=== PATIENT | male | born 1970 ===

== ENCOUNTER 2016-10-08 17:47 | Emergency (ER) | payer MEDICARE, MEDICAID ==
[2016-10-08 18:48] VITALS: BP 100/65
--- NOTE | 2016-10-08 19:08 | UC ---
Back Pain HPI - HPI Summary HPI Summary: 46 yo male with right mid back pain x 1 1 /2 weeks no injury hurts to twist and change positions no f/c no bowel or bladder dysfunction no UTI symptoms - History of Current Complaint Chief Complaint: UCBackPain Stated Complaint: MIDDLE BACK PAIN Time Seen by Provider: 10/08/16 18:49 Hx Obtained From: Patient Onset/Duration: Gradual Onset, Lasting Weeks Timing: Intermittent, Lasting Minutes Severity Initially: Moderate Severity Currently: Mild Pain Intensity: 3 Pain Scale Used: 0-10 Numeric Back Pain: Is Discrete @ - see image Character: Aching, Throbbing, Spasmodic Aggravating: Movement Alleviating: Rest, OTC Meds Associated Signs And Symptoms: Positive: Negative - Allergies/Home Medications Allergies/Adverse Reactions: Allergies Allergy/AdvReac Type Severity Reaction Status Date / Time No Known Allergies Allergy Verified 10/08/16 18:37 PMH/Surg Hx/FS Hx/Imm Hx Endocrine History: Diabetes GI/ History: Gastroesophageal Reflux Psychological History: Anxiety - Surgical History Surgical History: Yes Surgery Procedure, Year, and Place: RIGHT arm surgery as child - Family History Known Family History: Positive: Hypertension - Social History Alcohol Use: None Substance Use Type: None Smoking Status (MU): Former Smoker When Did the Patient Quit Smoking/Using Tobacco: 2008 - Immunization History Most Recent Influenza Vaccination: MAR 2016 Most Recent Tetanus Shot: UNK Most Recent Pneumonia Vaccination: N/A Review of Systems Constitutional: Negative Skin: Negative Eyes: Negative ENT: Negative Respiratory: Negative Cardiovascular: Negative Gastrointestinal: Negative Genitourinary: Negative Motor: Negative Neurovascular: Negative Musculoskeletal: Myalgia Neurological: Negative Psychological: Negative All Other Systems Reviewed And Are Negative: Yes Physical Exam Triage Information Reviewed: Yes Appearance: Well-Appearing, No Pain Distress, Well-Nourished Vital Signs: Initial Vital Signs Temp 98.3 F 10/08/16 18:40 Pulse 75 10/08/16 18:40 Resp 18 10/08/16 18:40 BP 100/65 10/08/16 18:40 Pulse Ox 98 10/08/16 18:40 Vital Signs Reviewed: Yes Eyes: Positive: Conjunctiva Clear ENT: Positive: Hearing grossly normal. Negative: Tonsillar swelling, Tonsillar exudate, Trismus, Muffled/hoarse voice Neck: Positive: Supple, Nontender Respiratory: Positive: Lungs clear, Normal breath sounds, No respiratory distress, No accessory muscle use Cardiovascular: Positive: RRR, No Murmur Bowel Sounds: Positive: Present Musculoskeletal: Positive: ROM Intact, No Edema Neurological: Positive: Alert Psychological Exam: Normal Skin Exam: Normal Back Pain Course/Dx - Differential Dx/Diagnosis Provider Diagnoses: right rhomboid myofascial strain spasm Discharge - Discharge Plan Condition: Stable Disposition: HOME Prescriptions: Cyclobenzaprine TAB* [Flexeril TAB*] 5 mg PO TID PRN #21 tab PRN Reason: Spasms Ibuprofen TAB* [Motrin TAB*] 600 mg PO Q6H PRN #40 tab PRN Reason: Pain Patient Education Materials: Thoracic Back Strain (ED) Referrals: [facility] [Primary Care Provider] - 5 Days Images Front/Back of Body, Lg ([place]): 1 - tender
== END 2016-10-08 19:12 | disposition home or self-care (01) ==
LOC: UCCORT 17:47
DX: S29.012A Strain of muscle and tendon of back wall of thorax, initial encounter (principal); X58.XXXA Exposure to other specified factors, initial encounter; Y93.9 Activity, unspecified; Y92.9 Unspecified place or not applicable; E11.9 Type 2 diabetes mellitus without complications; K21.9 Gastro-esophageal reflux disease without esophagitis; F41.9 Anxiety disorder, unspecified; Z87.891 Personal history of nicotine dependence
CPT/HCPCS: 99212; G0463